=== PATIENT | male | born 1975 | race Caucasian/White ===

== ENCOUNTER 2016-12-03 09:17 | Outpatient (CLI) | payer BC ==
--- NOTE | 2016-12-03 10:16 | RAD ---
FIVE VIEWS OF THE RIGHT KNEE: Comparison: None. History: Right knee pain, apex of the patella for months. FINDINGS: Five views of the right knee shows no evidence of acute fracture or dislocation. No degenerative malorie nges are seen. No knee effusion is present. IMPRESSION: No evidence of acute osseous abnormality. POS: [facility]
== END 2016-12-03 09:18 | disposition home or self-care (01) ==
LOC: SCSRAD 09:17
PROVIDERS: ATTEND Family Medicine
DX: M25.561 Pain in right knee (principal)

== ENCOUNTER 2018-06-03 21:09 | Emergency (ER) | payer BC ==
[2018-06-03] MEDS ORDERED: Adacel (T-DAP) 0.5 ML SYRINGE ONE (21:30)
== END 2018-06-03 21:56 | disposition home or self-care (01) ==
LOC: SCSER 21:09
DX: S60.511A Abrasion of right hand, initial encounter (principal); L03.113 Cellulitis of right upper limb
CPT/HCPCS: 90471; 90715